=== PATIENT | male | born 1980 | race Caucasian/White ===

== ENCOUNTER 2019-09-17 12:04 | Emergency (ER) | payer OTHER ==
[2019-09-18 14:32] LABS: SARS-CoV-2 MS2 Positive; SARS-CoV-2 N Gene Negative; SARS-CoV-2 S Gene Negative; SARS-CoV-2 orf1ab Negative
== END 2019-09-17 13:04 | disposition home or self-care (01) ==
LOC: ERS 12:04
DX: R07.81 Pleurodynia (principal); Z20.828 Contact with and (suspected) exposure to other viral communicable diseases; J45.909 Unspecified asthma, uncomplicated
CPT/HCPCS: 87635; 99284; U0003

== ENCOUNTER 2019-09-22 11:41 | Emergency (ER) | payer OTHER ==
[2019-09-23 12:19] LABS: SARS-CoV-2 MS2 Positive; SARS-CoV-2 N Gene Negative; SARS-CoV-2 S Gene Negative; SARS-CoV-2 by NAA Not Detected (NotDetected); SARS-CoV-2 orf1ab Negative
== END 2019-09-22 11:58 | disposition home or self-care (01) ==
LOC: ERS 11:41
DX: Z20.828 Contact with and (suspected) exposure to other viral communicable diseases (principal)
CPT/HCPCS: 87635; 99283; U0003

== ENCOUNTER 2019-11-28 16:31 | Emergency (ER) | payer OTHER ==
[2019-11-29 11:59] LABS: SARS-CoV-2 MS2 Positive; SARS-CoV-2 N Gene Positive; SARS-CoV-2 S Gene Positive; SARS-CoV-2 by NAA DETECTED (NotDetected); SARS-CoV-2 orf1ab Positive
== END 2019-11-28 16:58 | disposition home or self-care (01) ==
LOC: ERS 16:31
DX: R50.9 Fever, unspecified (principal); R05 Cough; Z20.828 Contact with and (suspected) exposure to other viral communicable diseases; J45.909 Unspecified asthma, uncomplicated; Z79.51 Long term (current) use of inhaled steroids; Z79.899 Other long term (current) drug therapy
CPT/HCPCS: 87635; 99283; U0003

== ENCOUNTER 2019-12-06 11:50 | Emergency (ER) | payer OTHER ==
[2019-12-06] MEDS ORDERED: Dexamethasone 4 mg/ml Vial ONE (12:23)
[2019-12-06 12:39] LABS: #Lymphocytes 1.2 thou/uL (1.20-3.40); #Monocytes 0.2 thou/uL (0.11-0.59); #Neutrophils 3.1 thou/uL (1.40-6.50); %Basophils 0.4 % (0.0-1.0); %Eosinophils 0.8 % (0.0-10.0); %Lymphocytes 26.8 % (21.0-51.0); %Monocytes 5.2 % (0.0-10.0); %Neutrophils 66.8 % (42.0-75.0); Hemoglobin 15.7 g/dL (14.0-18.0); Mean Corpuscular Hemoglobin 28.8 pg (27.0-31.0); Mean Corpuscular Volume 84.7 fL (78.0-98.0); Mean Platelet Volume 7.2 fL (7.4-10.4); Platelet Count 208 thou/uL (130-400); RBC Distribution Width 11.7 % (11.5-14.5); Red Blood Cell (RBC) Count 5.47 mill/uL (4.70-6.10); White Blood Cell (WBC) Count 4.6 thou/uL (4.8-10.8)
--- NOTE | 2019-12-06 12:44 | RAD ---
XR Chest 1 View Portable History: Dyspnea Comparison: None. Findings: Patient is rotated to the right. Patchy perihilar airspace opacities. Left diaphragm is martita vated. No pneumothorax. No acute osseous abnormality. Impression: Findings concerning for atypical viral infectious process.
[2019-12-06 12:45] LABS: INR-International Normal Ratio 0.9; Prothrombin Time 12.8 sec (12.0-14.7)
[2019-12-06 13:07] LABS: ALT (SGPT) 50 U/L (8-55); AST (SGOT) 50 U/L (5-34); Alkaline Phosphatase 58 U/L (40-110); Anion Gap 14 mmol/L (10-20); BUN (Urea Nitrogen) 10 mg/dL (8.9-20.6); Bilirubin, Total 0.4 mg/dL (0.2-1.2); CRP (Inflammatory) 2.05 mg/dL (= or < 0.5); Calc. Creatinine Clearance 0 mL/min (70-130); Calcium 8.7 mg/dL (7.8-10.44); Carbon Dioxide 24 mmol/L (22-29); Chloride 104 mmol/L (98-107); Estimated GFR-MDRD Greater than 90; Globulin 3.2 g/dL (2.4-3.5); Glucose 105 mg/dL (70-105); Potassium 3.9 mmol/L (3.5-5.1); Protein, Total 7.2 g/dL (6.0-8.3); Sodium 138 mmol/L (136-145)
[2019-12-06] MEDS ORDERED: Azithromycin 250 MG TAB ONE (13:10)
== END 2019-12-06 13:23 | disposition home or self-care (01) ==
LOC: ERS 11:50
DX: U07.1 COVID-19 (principal); J45.909 Unspecified asthma, uncomplicated; Z79.899 Other long term (current) drug therapy
CPT/HCPCS: 36415; 71045; 80053; 85025; 85610; 85652; 85730; 86140; J1100

== ENCOUNTER 2019-12-10 15:21 | Emergency (ER) | payer OTHER ==
--- NOTE | 2019-12-10 16:05 | RAD ---
XR Chest 1 View Portable HISTORY: Cough and shortness of breath COVIDPositive COMPARISON: 12/06/2019 FINDINGS: The heart size is normal. The lungs are well expanded without lobar consolidation, pneumoth orax or pleural effusions. There is continued elevation the left hemidiaphragm. Mild patchy opacities is seen in the left lung base and the perihilar regions.. IMPRESSION: Stable exam
[2019-12-10] MEDS ORDERED: Dexamethasone 10 MG/ML VIAL ONE (16:10)
[2019-12-10 16:23] LABS: #Eosinphils 0.2 thou/uL (0.0-0.7); #Lymphocytes 1.7 thou/uL (1.20-3.40); #Monocytes 0.4 thou/uL (0.11-0.59); #Neutrophils 6.7 thou/uL (1.40-6.50); %Basophils 0.4 % (0.0-1.0); %Eosinophils 2.4 % (0.0-10.0); %Lymphocytes 18.9 % (21.0-51.0); %Monocytes 4.1 % (0.0-10.0); %Neutrophils 74.1 % (42.0-75.0); Hemoglobin 14.8 g/dL (14.0-18.0); Mean Corpuscular HGB CONC 33.8 g/dL (32.0-36.0); Mean Corpuscular Volume 85.8 fL (78.0-98.0); Mean Platelet Volume 6.4 fL (7.4-10.4); Platelet Count 335 thou/uL (130-400); RBC Distribution Width 11.7 % (11.5-14.5); Red Blood Cell (RBC) Count 5.11 mill/uL (4.70-6.10)
[2019-12-10 16:45] LABS: ALT (SGPT) 61 U/L (8-55); AST (SGOT) 41 U/L (5-34); Alkaline Phosphatase 62 U/L (40-110); Anion Gap 12 mmol/L (10-20); BUN (Urea Nitrogen) 10 mg/dL (8.9-20.6); Bilirubin, Total 0.6 mg/dL (0.2-1.2); Calc. Creatinine Clearance 0 mL/min (70-130); Calcium 8.6 mg/dL (7.8-10.44); Carbon Dioxide 25 mmol/L (22-29); Chloride 106 mmol/L (98-107); Estimated GFR-MDRD Greater than 90; Globulin 3.4 g/dL (2.4-3.5); Glucose 92 mg/dL (70-105); Protein, Total 7.4 g/dL (6.0-8.3); Sodium 139 mmol/L (136-145)
== END 2019-12-10 18:19 | disposition home or self-care (01) ==
LOC: ERS 15:21
DX: U07.1 COVID-19 (principal); J12.89 Other viral pneumonia; R94.5 Abnormal results of liver function studies; J45.909 Unspecified asthma, uncomplicated; Z79.51 Long term (current) use of inhaled steroids
CPT/HCPCS: 36415; 71045; 80053; 84484; 85025; 93005; J1100